=== PATIENT | male | born 1975 | race American Indian/Alaskan Native ===

== ENCOUNTER 2021-04-15 18:44 | Emergency (ER) | payer SELFPAY ==
[2021-04-15 19:22] VITALS: BP 155/96
[2021-04-15] MEDS ORDERED: dexAMETHasone 20 MG/5 ML VIAL IM ONE (19:33)
--- NOTE | 2021-04-15 19:40 | Emergency Department Report ---
- General Chief complaint: Skin Rash Stated complaint: ALLERGIC REACTION Time Seen by Provider: 04/15/21 19:28 Source: patient Mode of arrival: Ambulatory Limitations: No Limitations - History of Present Illness Initial comments: Patient is a 45-year-old male who presents emergency room with complaints of poison destini. He states he was working out in the yard 2 weeks ago and got e xposed to poison destini. He states that it has been spreading and worsening. He states he has noticed swelling. He states he has been using calamine lotion without relief. He states he has been frequently scratching. He denies any fever, nausea, vomiting, diarrhea, chills. No past medical history. No allergies to medications. - Related Data Previous Rx's Medication Instructions Recorded Last Taken Type Hydrocortisone 1% [Hydrocortisone 1 applicatio TP TID #2 tube 04/15/21 Unknown Rx 1% CREAM] Prednisone [predniSONE 10 mg 10 mg PO .TAPER #1 tab.ds.pk 04/15/21 Unknown Rx (6-Day Pack, 21 Tabs)] Sulfamethoxazole/Trimethoprim 1 each PO BID 7 Days #14 tablet 04/15/21 Unknown Rx [Bactrim DS TAB] diphenhydrAMINE [Benadryl CAP] 25 mg PO Q6HR PRN #20 capsule 04/15/21 Unknown Rx Allergies Allergy/AdvReac Type Severity Reaction Status Date / Time No Known Allergies Allergy Unverified 04/15/21 19:14 Abscess Boil HPI - HPI Chief Complaint: Skin Rash Stated Complaint: ALLERGIC REACTION Time Seen by Provider: 04/15/21 19:28 Home Medications: Previous Rx's Medication Instructions Recorded Last Taken Type Hydrocortisone 1% [Hydrocortisone 1 applicatio TP TID #2 tube 04/15/21 Unknown Rx 1% CREAM] Prednisone [predniSONE 10 mg 10 mg PO .TAPER #1 tab.ds.pk 04/15/21 Unknown Rx (6-Day Pack, 21 Tabs)] Sulfamethoxazole/Trimethoprim 1 each PO BID 7 Days #14 tablet 04/15/21 Unknown Rx [Bactrim DS TAB] diphenhydrAMINE [Benadryl CAP] 25 mg PO Q6HR PRN #20 capsule 04/15/21 Unknown Rx Allergies/Adverse Reactions: Allergies Allergy/AdvReac Type Severity Reaction Status Date / Time No Known Allergies Allergy Unverified 04/15/21 19:14 ED Review of Systems ROS: Stated complaint: ALLERGIC REACTION Other details as noted in HPI Comment: All other systems reviewed and negative ED Past Medical Hx - Past Medical History Previous Medical History?: Yes Additional medical history: cataplexy - Surgical History Past Surgical History?: No - Medications Home Medications: Home Medications Medication Instructions Recorded Confirmed Last Taken Type Hydrocortisone 1% [Hydrocortisone 1 applicatio TP TID #2 tube 04/15/21 Unknown Rx 1% CREAM] Prednisone [predniSONE 10 mg 10 mg PO .TAPER #1 tab.ds.pk 04/15/21 Unknown Rx (6-Day Pack, 21 Tabs)] Sulfamethoxazole/Trimethoprim 1 each PO BID 7 Days #14 tablet 04/15/21 Unknown Rx [Bactrim DS TAB] diphenhydrAMINE [Benadryl CAP] 25 mg PO Q6HR PRN #20 capsule 04/15/21 Unknown Rx ED Physical Exam - General Limitations: No Limitations General appearance: alert, in no apparent distress - Head Head exam: Present: atraumatic, normocephalic - Eye Eye exam: Present: normal appearance - ENT ENT exam: Present: mucous membranes moist - Neurological Exam Neurological exam: Present: alert, oriented X3 - Psychiatric Psychiatric exam: Present: normal affect, normal mood - Skin Skin exam: Present: warm, dry, other (diffuse vesicular linear rash with erythema, there is edema and erythema with increased warmth to the left forearm, no drainage, no necrosis, no crepitus ) ED Course Vital Signs 04/15/21 19:16 Temperature 98.3 F Pulse Rate 57 L Respiratory 15 Rate Blood Pressure 155/96 O2 Sat by Pulse 94 Oximetry ED Medical Decision Making - Medical Decision Making Patient is a 45-year-old male who presents emergency room with complaints of poison destini. He states he was working out in the yard 2 weeks ago and got exposed to poison destini. He states that it has been spreading and worsening. He states he has noticed swelling. He states he has been using calamine lotion without relief. He states he has been frequently scratching. He denies any fever, nausea, vomiting, diarrhea, chills. No past medical history. No allergies to medications. on exam: diffuse vesicular linear rash with erythema, there is edema and erythema with increased warmth to the left forearm, no drainage, no necrosis, no crepitus. Examination appears consistent with diffuse poison destini dermatitis. The left forearm appears to have a secondarily cellulitis. Patient given dexamethasone IM on the emergency department. Patient given prescription for medications. Advised patient Please use medication as prescribed. Follow-up with your primary care doctor. Return to emergency room for any new or worsening symptoms. Critical care attestation.: If time is entered above; I have spent that time in minutes in the direct care of this critically ill patient, excluding procedure time. ED Disposition Clinical Impression: Poison destini Cellulitis Qualifiers: Site of cellulitis: extremity Site of cellulitis of extremity: upper extremity Laterality: left Qualified Code(s): L03.114 - Cellulitis of left upper limb Disposition: HOME / SELF CARE / HOMELESS Is pt being admited?: No Does the pt Need Aspirin: No Condition: Stable Instructions: Poison Destini Dermatitis, Cellulitis, Adult, [id number] Additional Instructions: Please use medication as prescribed. Follow-up with your primary care doctor. Return to emergency room for any new or worsening symptoms. Prescriptions: Sulfamethoxazole/Trimethoprim [Bactrim DS TAB] 1 each PO BID 7 Days #14 tablet diphenhydrAMINE [Benadryl CAP] 25 mg PO Q6HR PRN #20 capsule PRN Reason: itching Hydrocortisone 1% [Hydrocortisone 1% CREAM] 1 applicatio TP TID #2 tube Prednisone [predniSONE 10 mg (6-Day Pack, 21 Tabs)] 10 mg PO .TAPER #1 tab.ds.pk Referrals: DANNA FIORE MD [Staff Physician] - 3-5 Days [facility] [Provider Group] - 3-5 Days Time of Disposition: 19:38 Print Language: DANISH
== END 2021-04-15 20:38 | disposition home or self-care (01) ==
LOC: ED 18:44
DX: L23.7 Allergic contact dermatitis due to plants, except food (principal); L03.90 Cellulitis, unspecified; Z98.890 Other specified postprocedural states; Z79.899 Other long term (current) drug therapy
CPT/HCPCS: 96372; 99281; J1100